=== PATIENT | female | born 1965 | race Caucasian/White ===

== ENCOUNTER 2023-12-11 19:59 | Emergency (ER) | payer BC ==
[~2023-12-11] VITALS: Ht 167.6 cm; Wt 63.5 kg
[2023-12-11 20:05] VITALS: BP 148/50; PULSE 74; RESP 20; TEMP 98; O2SAT 100
[2023-12-11 20:51] LABS: BASOPHILS # (AUTO) 0.1 K/uL (0.00-0.22); BASOPHILS % (AUTO) 0.9 % (0.0-2.0); EOSINOPHILS # (AUTO) 0.1 K/uL (0-0.4); EOSINOPHILS % (AUTO) 1.2 % (0.0-4.0); HEMATOCRIT 40.2 % (36-48); HEMOGLOBIN 13.7 g/dL (12.0-16.0); LYMPHOCYTES # (AUTO) 2.6 K/uL (2.5-16.5); LYMPHOCYTES % (AUTO) 44.2 % (20.5-51.1); MEAN CORPUSCULAR HEMOGLOBIN 32 pg (27-31); MEAN CORPUSCULAR HGB CONC 34 g/dL (33-37); MEAN CORPUSCULAR VOLUME 93.2 fL (80-94); MONOCYTES # (AUTO) 0.5 K/uL (0.8-1.0); MONOCYTES % (AUTO) 9.4 % (1.7-9.3); NEUTROPHILS # (AUTO) 2.6 K/uL (1.8-7.7); NEUTROPHILS % (AUTO) 44.3 % (42.2-75.2); PLATELET COUNT (AUTO) 218 K/uL (140-450); RED BLOOD CELL COUNT(AUTO) 4.31 MIL/uL (4.20-5.40); RED CELL DISTRIBUTION WIDTH 12.6 % (11.6-13.7); WHITE BLOOD COUNT (AUTO) 5.8 K/uL (4.8-10.8)
[2023-12-11 21:06] LABS: FLU A ANTIGEN negative (NEGATIVE); FLU B ANTIGEN NEGATIVE (NEGATIVE)
[2023-12-11 21:08] LABS: ANION GAP 13.3 (8-16); CALCIUM 9.1 mg/dL (8.5-10.1); CREATININE 0.8 mg/dL (0.6-1.3); POTASSIUM 3.3 mmol/L (3.5-5.1)
[2023-12-11] MEDS: KETOROLAC 30 MG/ML VIAL IVP ONE (21:27)
[2023-12-11] MEDS: ONDANSETRON 4 MG/2 ML VIAL IVP ONE (21:28)
[2023-12-11] MEDS: ACETAMINOPHEN EXTRA STRENGTH 500 MG TAB PO ONE (21:29)
[2023-12-11 21:30] LABS: ALBUMIN 4.1 g/dL (3.4-5.0); BILIRUBIN,DIRECT 0.2 mg/dL (0.0-0.3); TOTAL BILIRUBIN 0.5 mg/dL (0.0-1.0); TOTAL PROTEIN, SERUM 7.2 g/dL (6.4-8.2)
[2023-12-11 23:03] LABS: APPEARANCE,URINE CLEAR (CLEAR); BILIRUBIN,URINE NEGATIVE (NEGATIVE); COLOR,URINE YELLOW (YELLOW); UGLUCOSE NEGATIVE (NEGATIVE)
[2023-12-11 23:04] LABS: PH,URINE 6.5 (5.0-9.0); PROTEIN,URINE NEGATIVE (NEGATIVE)
[2023-12-11 23:05] LABS: BLOOD, URINE NEGATIVE (NEGATIVE); LEUKOCYTE ESTERASE ,URINE TRACE (NEGATIVE); NITRITE, URINE NEGATIVE (NEGATIVE); UROBILINOGEN,URINE 0.4 EU/dL (0.2 - 1)
[2023-12-11] MEDS ORDERED: DICYCLOMINE 20 MG/2 ML VIAL IM ONE (23:11)
[2023-12-11 23:12] LABS: BACTERIA,URINE 10-30 (MOD) /HPF (None Seen); MUCUS,URINE 1+ /LPF (None Seen); RBC,URINE 0-5 /HPF (0-5); SQUAMOUS EPITHELIAL CELL,UR 4-10 (MOD) /LPF (0-3 (FEW)); WBC,URINE 0-5 /HPF (0-5)
[2023-12-11] MEDS: DICYCLOMINE 20 MG/2 ML VIAL IM ONE (23:22)
[2023-12-11] MEDS: LORazepam 2 MG/ML VIAL IVP ONE (23:23)
[2023-12-11] MEDS: diphenhydrAMINE 50 MG/ML VIAL IVP ONE (23:24)
[2023-12-12] MEDS ORDERED: MIRABULK PO (00:50)
[2023-12-12] MEDS ORDERED: BEN10 PO (00:50)
[2023-12-12 01:07] VITALS: BP 132/52; PULSE 76; RESP 18; TEMP 98; O2SAT 100
== END 2023-12-12 01:07 | disposition home or self-care (01) ==
LOC: MED 19:59
DX: R10.84 Generalized abdominal pain (principal); Z20.822 Contact with and (suspected) exposure to COVID-19
CPT/HCPCS: 36415; 71045; 74176; 80048; 80076; 81001; 81025; 83690; 84484; 85025; 87086; 87426; 87804; 93005; 96372; 96374; 96375; 99285; J0500; J1200; J1885; J2060; J2405